=== PATIENT | male | born 1975 | race African-American/Black ===

== ENCOUNTER 2021-03-11 18:13 | Emergency (ER) | payer SELFPAY ==
[~2021-03-11] VITALS: Ht 170.2 cm; Wt 79.5 kg
[2021-03-11 18:49] VITALS: BP 124/79
[2021-03-11] MEDS ORDERED: BENADRY2 EX (20:11)
[2021-03-11] MEDS ORDERED: DOXYCYC MONO100 M2 PO (20:11)
== END 2021-03-11 20:18 | disposition home or self-care (01) | DRG 607 ==
LOC: ED 18:13
DX: S30.862A Insect bite (nonvenomous) of penis, initial encounter (principal); F17.210 Nicotine dependence, cigarettes, uncomplicated; W57.XXXA Bitten or stung by nonvenomous insect and other nonvenomous arthropods, initial encounter

== ENCOUNTER 2021-06-13 16:39 | Emergency (ER) | payer OTHER ==
[~2021-06-13] VITALS: Ht 170.2 cm; Wt 76.8 kg
[~2021-06-13 16:39] MED LIST: BENADRY2 EX; DOXYCYC MONO100 M2 PO
[2021-06-13 17:14] VITALS: BP 124/80
[2021-06-13] MEDS ORDERED: ULTRAM50 M1 PO (19:19)
[2021-06-13] MEDS ORDERED: CYCLOBENZAPRINE10 MG PO (19:19)
== END 2021-06-13 19:38 | disposition home or self-care (01) | DRG 552 ==
LOC: ED 16:39
DX: M54.50 Low back pain, unspecified (principal); F17.210 Nicotine dependence, cigarettes, uncomplicated